=== PATIENT | female | born 1995 | race American Indian/Alaskan Native ===

== ENCOUNTER 2021-04-14 08:52 | Emergency (ER) | payer MEDICAID | END 2021-04-14 10:09 | disposition home or self-care (01) | LOC: JP.ED 08:52 | DX: F15.129 Other stimulant abuse with intoxication, unspecified (principal); Z72.0 Tobacco use | CPT/HCPCS: 36415; 80048; 80305-QW; 81001; 81025; 85025; 99282; 99284 ==

== ENCOUNTER 2023-05-27 19:11 | Emergency (ER) | payer MEDICAID | END 2023-05-27 20:49 | disposition home or self-care (01) | LOC: JP.ED 19:11 | DX: F15.10 Other stimulant abuse, uncomplicated (principal); F17.210 Nicotine dependence, cigarettes, uncomplicated | CPT/HCPCS: 99284 ==